=== PATIENT | female | born 1950 | race Caucasian/White ===

== ENCOUNTER → 2019-05-09 | Outpatient (CLI) | payer MEDICARE, OTHER ==
--- NOTE | 2019-05-10 10:24 | REP ---
MRI BILATERAL SHOULDERS: TECHNIQUE: Axial T2 fat sat, gradient echo, sagittal oblique T2 fat sat, coronal oblique T1, T2 fat sat. This study is limited due to extensive patient motion. LEFT SHOULDER: There is a complete full-thickness tear of the distal supraspinatus tendon with retraction of the musculotendinous junction approximately 2 cm. There also appears to be a partial tear of the subscapularis tendon. There is a full-thickness partial tear of the infraspinatus tendon. There are mild hypertrophic degenerative changes of the acromioclavicular joint with mild fluid in the joint and mild subacromial spurring. Acromion is type 2. Biceps tendon is slightly displaced anteriorly out of the bicipital groove with moderate surrounding fluid, which may represent tenosynovitis. There is no Hill-Sachs deformity. There is no abnormal signal of the deltoid muscle. Biceps labral complex demonstrates some fraying and the labrum also demonstrates some scattered fraying without a discrete full-thickness tear of the labrum. Mild subchondral cystic changes are seen of the humeral head. There is moderate joint effusion with significant fluid extending into the subacromial/subdeltoid bursae anteriorly. No paralabral cyst is seen. 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 IMPRESSION: Complete full-thickness tear distal supraspinatus tendon with retraction of the musculotendinous junction 2 cm. There are full-thickness partial tears of the subscapularis and infraspinatus tendons. There are mild hypertrophic degenerative changes of the acromioclavicular joint with mild subacromial spurring and a type 2 acromion. Biceps tendon is slightly displaced anteriorly out of the bicipital groove, with moderate surrounding fluid, which may represent tenosynovitis. There is mild fraying of the biceps labral complex and mild scattered fraying of the labrum without a discrete labral tear. Moderate joint fluid extends into the subacromial/subdeltoid bursae anteriorly. RIGHT SHOULDER: There is a complete full-thickness tear of the supraspinatus tendon as well as the infraspinatus tendon. The supraspinatus musculotendinous junction is retracted approximately 4 cm. There is a high-grade full-thickness tear of the subscapularis tendon. The teres minor appears intact. There are mild hypertrophic degenerative changes of the acromioclavicular joint with mild fluid in the joint. Humeral head is elevated and directly abuts the acromion. The acromion is type 2. Biceps tendon appears torn proximally. There is no Hill-Sachs deformity. The deltoid muscle demonstrates no abnormal signal. There is limited visualization of the superior labrum due to excessive motion. There is at least diffuse fraying of the superior labrum. There does appear to be a tear of the inferior labrum posteriorly. 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 There is minor subchondral marrow edema in the humeral head. There are mild subchondral cystic changes in the glenoid. There is a moderate joint effusion with some fluid extending into the subacromial bursa. A joint body is seen in the subcoracoid region measuring about 7 mm. IMPRESSION: Full thickness complete tears of the supraspinatus and infraspinatus tendons, with retraction of the supraspinatus musculotendinous junction, approximately 4 cm. There is a high-grade full-thickness tear of the subscapularis tendon. There are mild hypertrophic degenerative changes of the acromioclavicular joint with type 2 acromion. Biceps tendon is torn proximally. There is limited visualization of the superior labrum due to excessive patient motion but there is at least diffuse fraying of the superior labrum. There does appear to be a tear of the posterior aspect of the inferior labrum. 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 Moderate joint effusion with fluid extending into the subacromial bursa. Electronically Signed by Bryan Phelan MD 05/10/2019 11:25 A
== END ==
LOC: M RAD 17:30
PROVIDERS: ATTEND Orthopaedic Surgery Sports Medicine
DX: S46.011A Strain of muscle(s) and tendon(s) of the rotator cuff of right shoulder, initial encounter (principal); S46.012A Strain of muscle(s) and tendon(s) of the rotator cuff of left shoulder, initial encounter; X58.XXXA Exposure to other specified factors, initial encounter; Y92.89 Other specified places as the place of occurrence of the external cause